=== PATIENT | female | born 1965 | race Caucasian/White ===

== ENCOUNTER 2025-08-04 13:28 | Outpatient (CLI) | payer BC, SELFPAY ==
--- OUTSIDE RECORDS SUMMARY | 2017-09-29 16:11 | XMS_ITS | Continuity of Care Document ---
Author Organization [facility] Address [address] [facility] [place] [address] Phone Care Team Providers Care Draw Bench Operator Name Role Phone Abhijit Donato MD Unavailable Unavailable Allergies, Adverse Reactions, Alerts Substance Reaction Status Criticality No Known Allergies Active No Inform ation Medications Medication Instructions Dosage Effective Dates (start - stop) Status Comments Vitamin D3 5,000 unit tablet take 1 tablet by Oral route every day 1 tablet - Active Lipitor 20 mg tablet take 1 tablet by oral route every evening - Active aspirin 81 mg tablet,delayed release take 1 tablet by oral route every evening 81 MG - Active Aldactone 100 mg tablet take 1 tablet by oral route every evening 100 MG - Active VITAMIN B-12 (unknown strength) [...] Diagnoses Date Provider Providers Copied on Encounter [facility], [address] [place] [address], [place], [place], [id number], tel:[phone] AMRIT DONATO OFFICE MHP No Information 7 Misa Buitrago [address], [address], [place], [place], [id number], [place]. tel:[phone] EST PT OFFICE VISIT LOW TO [facility], [address] [place] [address], [place], [place], [id number], tel:[phone] AMRIT DONATO OFFICE MHP 6 MTH f/U (chief complaint)gene ral (chief complaint) Cancer of colonPure hypercholeste rolemia, unspecifiedPa lpitationsHyp okalemia 6 Misa Buitrago [address], [address], [place], [place], [id number], [place]. tel:[phone] Referring Provider: Abhijit Mccallum [address], [place], [address] . tel:[phone] [facility], [address] [place] [address], [place], [place], [id number], tel:[phone] AMRIT DONATO OFFICE MHP Cardiomyopath y, unspecifiedPa lpitations 6 Misa Lacey. [address], [address], [place], [place], [id number], [place]. tel:[phone] Referring Provider: Abhijit Mccallum, [address], [place], [address] . tel:[phone] EST PT OFFICE VISIT MOD TO HIGH [facility], [address] [place] [address], [place], [place], [id number], tel:[phone] AMRIT DONATO OFFICE MHP hyperlipidemia (chief complaint)Free form HPI (chief complaint)gene ral (chief complaint) Pure hypercholeste rolemiaCancer of colonPalpitat ions 5 Misa Lacey. [address], [address], [place], [place], [id number], [place]. tel:[phone] Referring Provider: Abhijit Mccallum, [address], [place], [address] . tel:[phone] [facility], [address] [place] [address], [id number], tel:[phone] [facility] No Information 4 Misa Lacey. [address], [address], [place], [place], [id number], [place]. tel:[phone] Referring Provider: Abhijit Mccallum, [address], [place], [address] . tel:[phone] [facility], [address] [place] [address], [place], [place], [id number], tel:[phone] AMRIT Donato [place] [facility] Hypercholeste rolemiaFatigu e / MalaiseHypoka lemia 3 Katelyn Haley. [address], [place], [place], [id number], [place]. tel:[phone] EST PT OFFICE VISIT LOW TO MOD [facility], [address] [place] [address], [place], [place], [id number], [place] tel:[phone] AMRIT Misa [employer] [place] [facility] Hypercholeste rolemiaFatigu e / Malaise 3 Misa Lacey. [address], [place], [place], [id number], [place]. tel:[phone] Referring Provider: Abhijit Mccallum, [address], [place], [address] . tel:[phone] EST PT OFFICE VISIT [facility], [address], [place], [place], [id number], tel:[phone] AMRIT Misa [place] [facility] No Information 2 Misa Abhijit. [address], [address], [place], [place], [id number], [place]. tel:[phone] Referring Provider: Ajay Ron [address], [place], [address]. tel:[phone] EST PT OFFICE VISIT LOW TO [facility], [address], [place], [place], [id number], [place] tel:[phone] AMRIT ChildersMisa [place] [facility] No Information 2 Misa Lacey. [address], [place], [place], [id number], [place]. tel:[phone] Referring Provider: Ajay Ron [address], [place], [address]. tel:[phone] Family History Family Member Type Diagnosis Age At Onset Family Hx of Problem (finding) Diabetes Mellitus Payers Payer name Insurance type Covered alliance party ID Authorcamiloa tiana(s) [facility] PPO BL [id number] Social History Type Description Quantity Date Captured Comments Alcohol Use Details Caffeine Use Details Coffee Tobacco Use Status No Information Smoking Status Never smoker Sex Female Chief Complaint And Reason For Visit No Information Reason For Referral Reason For Referral No Information Plan Of Treatment Date Type Action Status Future Order: Radiology Order 2- D w/ CFD Echocardiogram at the first available time. ([id number]), Ordered on: Ordered History Of Present Illness [...]
--- OUTSIDE RECORDS SUMMARY | 2025-06-08 09:25 | XMS_ITS | Continuity of Care Document ---
Author Organization [facility] Address [address] [facility] [address] [place] [address] Phone Care Team Providers Care Manager Convention Name Role Phone Man Trevino MD, MD Unavailable Unavail able Allergies, Adverse Reactions, Alerts Substance Reaction Status Criticality No Known Allergies Active No Inform ation Medications Medication Instructions Dosage Effective Dates (start - stop) Status Comments atorvastatin 20 mg tablet TAKE 1 TABLET BY MOUTH EVERY DAY - Active escitalopram 10 mg tablet TAKE 1 TABLET BY MOUTH EVERY DAY - Active Zepbound 12.5 mg/0.5 mL subcutaneous pen injector INJECT 1 PEN INJECTOR INTO THE SKIN ONCE A WEEK - Active celecoxib 200 mg capsule TAKE 1 CAPSULE BY MOUTH EVERY DAY WITH FOOD - Active clindamycin HCl 300 mg capsule TAKE 1 CAPSULE BY MOUTH EVERY 8 HOURS - Active clotrimazole-betametha sone 1 %-0.05 % topical cream APPLY TOPICALLY TO THE AFFECTED AND SURROUNDING AREAS OF SKIN 2 TIMES PER DAY, IN THE MORNING AND EVENING, FOR 2 WEEKS - Active fluconazole 150 mg tablet TAKE 1 TABLET BY MOUTH EVERY 72 HOURS - Active Zepbound 10 mg/0.5 mL subcutaneous pen injector Inject 1 pen injector subcutaneously once a week - Active metronidazole 500 mg tablet TAKE 1 TABLET BY MOUTH 2 TIMES A DAY FOR 7 DAYS - Active ibuprofen 800 mg tablet TAKE 1 TABLET BY MOUTH EVERY 8 HOURS NEEDED for cramping - Active oxycodone 5 mg tablet TAKE 1 TABLET BY M OUTH EVERY 4 HOURS NEEDED FOR PAIN not relieved by non-opioid - Active Zepbound 7.5 mg/0.5 mL subcutaneous pen injector INJECT 7.5 MG SUBCUTANEOUSLY ONCE A WEEK DIRECTED - Active Zepbound 5 mg/0.5 mL subcutaneous pen injector inject 5 mg subcutaneously once a week as directed - Active Zepbound 2.5 mg/0.5 mL subcutaneous pen injector INJECT 1 PEN SUBCUTANEOUSLY 1 TIME A WEEK - Active alprazolam 0.25 mg tablet TAKE 1 TABLET BY MOUTH EVERY DAY NEEDED - Active valacyclovir 500 mg tablet TAKE 1 TABLET BY MOUTH ONCE DAILY FOR 90 DAYS - Active Procedures Procedure Date BMI Documented Above Normal Limit F/U Pl an Doc X-ray exam finger(s), minimum 2 views Kenalog 10mg/mL Asp/inject Minor joint or bursa w/o US g uidance Office/outpatient visit,[facility] 2024 Advance Directives Directive Yes / No Effective Date File Name No Information Encounters Encounter Description Practice Location Reason(s) For Visit Diagnoses Date Provider Providers Copied on Encounter [facility], [address] [place] [address], [id number], [place] tel:[phone] [facility] No Information Belinda Conway. [address], [id number], [place]. tel:[phone] Office/outpa tient visit,[facility], [address], [id number], [place] tel:[phone] [facility] Right hand (chief complaint) Pain in right finger(s)Primary osteoarthritis, right handCarpal tunnel syndrome, right upper limbUnilateral primary osteoarthritis of first carpometacarpal joint, right hand 5 Belinda Conway. [address], [id number], [place]. tel:[phone] [facility], [address], [place], [place], [id number], [place] tel:[phone] [facility] Pain in right hand José Anand Narda. [address], [address], [place], [address], [place]. tel:[phone] Family History Family Member Type Diagnosis Age At Onset Mother Problem (finding) Osteoarthritis Brother Problem (finding) Cancer, unknown Payers Payer name Insurance type Covered republican ID Authoriza tiana(s) Farhan Crain [facility] [id number] Social History Type Description Quantity Date Captured Comments Alcohol Use Details Unknown Caffeine Use Details Unknown Tobacco Use Status No Information Smoking Status No Information Sex Female Gender Identity Female Chief Complaint And Reason For Visit No Information Reason For Referral Reason For Referral No Information Plan Of Treatment Date Type Action Status Referral Ordered: X-ray exam finger(s), minimum 2 views RT ordered Referral Ordered: X-ray exam hand, 3+ views RT ordered Appointment Bruna Gasca BOOKED History Of Present Illness Encounter Date Complaint History Of Prese nt Illness Right hand Bruna present s to the office today on May 18, 2025. She is here because of right hand pain, numbness, and tingling, and also because of right thumb pain. Bruna reports that her symptoms have been present for about 2 years. She has tried wearing a splint at night for her right carpal tunnel syndrome, but the splint has not seemed to help, and Bruna has not tolerated the splint well. She reports that the right carpal tunnel symptoms wake her up at night. They also bother her when she is driving. Bruna tells me that she had a pinched nerve in her neck in July 2024, and she responded to Celebrex and physical therapy. However, her right hand symptoms persist. She also has pain in her right thumb. Her right thumb pain seems localized more to the interphalangeal joint than to the carpometacarpal joint. She is here today for further evaluation and treatment of her right hand and right thumb. Functional Status Date Functional Assessmen t No Information Instructions Date Instruction Additional Infor mation No Information Assessments Type Assessment Date No Information Patient Care Teams Name Effective Dates (start - stop) Status Members No Information
--- NOTE | ~2025-08-04 | CT_ITS ---
EXAMINATION: CT brain wo carla, 08/04/2025 13:41 CDT HISTORY: migraine COMPARISON: No comparisons available. Technique: Axial images obtained of the brain without contrast. One or more of the following dose reduction techniques were used: automated exposure control, adjustment of the mA and/or kV according to patient size, use of iterative reconstruction technique. Findings: No acute infarct or parenchymal hemorrhage. No abnormal mass or mass effect. No midline shift. No extra-axial fluid collections. No hydrocephalus. Mastoid air cells unremarkable. Sinuses and orbits unremarkable. No acute fracture. No significant facial or scalp soft tissue swelling evident. No radiopaque foreign body is seen. Impression: 1.No acute intracranial abnormality. Reviewed, dictated and finalized at location P. Impression: 1.No acute intracranial abnormality.
== END 2025-08-04 13:29 | disposition home or self-care (01) ==
LOC: ANHIMG 13:34
PROVIDERS: PCP Family Medicine; Visit Provider Nurse Practitioner Family
DX: G43.909 Migraine, unspecified, not intractable, without status migrainosus (principal)
CPT/HCPCS: 70450

== ENCOUNTER 2025-08-28 09:47 | Outpatient (CLI) | payer BC, SELFPAY ==
--- OUTSIDE RECORDS SUMMARY | 2017-09-29 16:11 | XMS_ITS | Continuity of Care Document ---
Author Organization [facility] Address [address] [facility] [place] [address] Phone Care Team Providers Care Black Top Paver Operator Name Role Phone Abhijit Donato MD Unavailable Unavailable Allergies, Adverse Reactions, Alerts Substance Reaction Status Criticality No Known Allergies Active No Inform ation Medications Medication Instructions Dosage Effective Dates (start - stop) Status Comments Lipitor 20 mg tablet take 1 tablet by oral route every evening - Active Vitamin D3 5,000 unit tablet take 1 tablet by Oral route every day 1 tablet - Active Aldactone 100 mg tablet take 1 tablet by oral route every evening 100 MG - Active aspirin 81 mg tablet,delayed release take 1 tablet by oral route every evening 81 MG - Active VITAMIN B-12 (unknown strength) take 1 Tablet by Oral route every day Not Available - Active OMEPRAZOLE (unknown strength) take 1 capsule by oral route every evening before a meal Not Available - Active Procedures Procedure Date EST PT OFFICE VISIT LOW TO MOD 16 EKG, COMPLETE ECHO COMPLETE EST PT OFFICE VISIT MOD TO HIGH 015 EKG, COMPLETE ECHO TRANSTHORACIC STRESS TEST CARDIO INTERP AND REPORT ONL Y EST PT OFFICE VISIT LOW TO MOD 13 EKG, COMPLETE EST PT OFFICE VISIT MIN EST PT OFFICE VISIT LOW TO MOD 12 EKG, COMPLETE Advance Directives Directive Yes / No Effective Date File Name Resuscitation Not Answered N/A N/A Life Support Not Answered N/A N/A Intubation Not Answered N/A N/A Antibiotics Not Answered N/A N/A IV Fluid Support Not Answered N/A N/A Tube Feed Not Answered N/A N/A Other Directive N/A N/A WARNING:The information contained in this section is historical and is provided for information only and does not constitute a legal document or any assurance that the information is still accurate. Please verify the information with the lynn of the legal document before using it for clinical purposes. Encounters Encounter Description Practice Location Reason(s) For Visit Diagnoses Date Provider Providers Copied on Encounter [facility], [address] [place] [address], [place], [place], [id number], tel:[phone] AM[facility]IT DONATO OFFICE [facility] No Information 7 Misa Buitrago [address], [address], [place], [place], [id number], [place]. tel:[phone] EST PT OFFICE VISIT LOW TO [facility], [address] [place] [address], [place], [place], [id number], tel:[phone] AMRIT DONATO OFFICE M[facility] 6 MTH f/U (chief complaint)gene ral (chief complaint) Cancer of colonPure hypercholeste rolemia, unspecifiedPa lpitationsHyp okalemia 6 Misa Buitrago [address], [address], [place], [place], [id number], [place]. tel:[phone] Referring Provider: Abhijit Mccallum [address], [place], [address] . tel:[phone] [facility], [address] [place] [address], [place], [place], [id number], tel:[phone] AMRIT DONATO OFFICE M[facility] Cardiomyopath y, unspecifiedPa lpitations 6 Misa Lacey. [address], [address], [place], [place], [id number], [place]. tel:[phone] Referring Provider: Abhijit Mccallum, [address], [place], [address] . tel:[phone] EST PT OFFICE VISIT MOD TO HIGH [facility], [address] [place] [address], [place], [place], [id number], tel:[phone] AMRIT DONATO OFFICE MHP hyperlipidemia (chief complaint)Free form HPI (chief complaint)gene ral (chief complaint) Pure hypercholeste rolemiaCancer of colonPalpitat ions 5 Misa Lacey. [address], [address], [place], [place], [id number], [place]. tel:[phone] Referring Provider: Abhijit Mccallum, [address], [place], [address] . tel:[phone] [facility], [address] [place] [address], [id number], tel:[phone] [facility] No Information 4 Misa Lacey. [address], [address], [place], [place], [id number], [place]. tel:[phone] Referring Provider: Abhijit Mccallum, [address], [place], [address] . tel:[phone] [facility], [address] [place] [address], [place], [place], [id number], tel:[phone] AMRIT Donato [place] [facility] Hypercholeste rolemiaFatigu e / MalaiseHypoka lemia 3 Katelyn Haley. [address], [place], [place], [id number], [place]. tel:[phone] EST PT OFFICE VISIT LOW TO MOD [facility], [address] [place] [address], [place], [place], [id number], [place] tel:[phone] AMRIT Misa [employer] [place] [facility] Hypercholeste rolemiaFatigu e / Malaise 3 Misa Lacey. [address], [place], [place], [id number], [place]. tel:[phone] Referring Provider: Abhijit Mccallum, [address], [place], [address] . tel:[phone] EST PT OFFICE VISIT [facility], [address], [place], [place], [id number], tel:[phone] AMRIT Misa [place] [facility] No Information 2 Misa Abhijit. [address], [place], [place], [id number], [place]. tel:[phone] Referring Provider: Ajay Ron [address], [place], [address]. tel:[phone] EST PT OFFICE VISIT LOW TO [facility], [address], [place], [place], [id number], [place] tel:[phone] AMRIT ChildersMisa [place] [facility] No Information 2 Misa Lacey. [address], [place], [place], [id number], [place]. tel:[phone] Referring Provider: Ajay Ron [address], [place], [address]. tel:[phone] Family History Family Member Type Diagnosis Age At Onset Family Hx of Problem (finding) Diabetes Mellitus Payers Payer name Insurance type Covered libertarian ID Authorcamiloa tiana(s) [facility] PPO BL [id number] Social History Type Description Quantity Date Captured Comments Alcohol Use Details Caffeine Use Details Coffee Tobacco Use Status No Information Smoking Status Never smoker Sex Female Chief Complaint And Reason For Visit No Information Reason For Referral Reason For Referral No Information Plan Of Treatment Date Type Action Status Future Order: Radiology Order 2- D w/ CFD Echocardiogram at the first available time. ([id number]), Ordered on: Ordered History Of Present Illness Encounter Date Complaint History Of Prese nt Illness 6 MTH f/U general She has had no c hest discomfort suggestive of ischemia. The patient denies orthopnea, PND, BETANCOURT, or edema. Ms. Gasca has not had palpitations, syncope or near syncope. She denies claudication. There is no discoloration or ulceration of the lower extremities. She has had no TIA or stroke-like symptoms. The patient has no symptoms attributable to valvular heart disease. hyperlipidemia Freeform HPI 50 yo female wit h a hx of colon cancer, hyperlipidemia is self -referred ; she was last seen in the office in 2012; she admits to having recurrent palpitations which usually occur prior to starting her period; her heart feels irregular; she denies cp, sob. general She has had no c hest discomfort suggestive of ischemia. The patient denies orthopnea, PND, BETANCOURT, or edema. Ms. Gasca has not had palpitations, syncope or near syncope. She denies claudication. There is no discoloration or ulceration of the lower extremities. She has had no TIA or stroke-like symptoms. The patient has no symptoms attributable to valvular heart disease. Functional Status Date Functional Assessmen t No Information Instructions Date Instruction Additional Infor mation No Information Assessments Type Assessment Date No Information Patient Care Teams Name Effective Dates (start - stop) Status Members No Information
--- NOTE | ~2025-08-28 | MR_ITS ---
EXAMINATION: MR brain/brain stem wo con DATE: 08/28/2025 10:58 INDICATION: Migraine, unspecified, not intractable. TECHNIQUE: Magnetic resonance imaging (MRI) of the brain and brainstem was performed without intravenous contrast. COMPARISON: Head CT 08/04/25 FINDINGS: There are scattered areas of nonspecific increased T2-weighted signal intensity in the cerebral white matter, which is within normal limits for the patient's age. There is no intracranial hemorrhage, acute infarction, or abnormal intracranial mass lesion. The ventricles are normal in size. The mastoid air cells are normal. There is mild mucosal thickening in the paranasal sinuses. The orbits are normal. IMPRESSION: 1. Normal aging brain. Reviewed, dictated and finalized at location E. IMPRESSION: 1. Normal aging brain.
--- OUTSIDE RECORDS SUMMARY | 2025-08-28 09:52 | XMS_ITS | Clinical Summary ---
Author Organization [facility] [address] Address [address] [place] [address] Care Team Providers Care Associate Data Scientist Name Role Phone No, Physician Primary Care Provider [phone] Allergies No known active allergies Medications atorvastatin (LIPITOR) 20 mg tablet Take 1 tablet (20 mg total) by mouth daily Active escitalopram (LEXAPRO) 10 mg tablet Take 1 tablet (10 mg total) by mouth daily Active tirzepatide (ZEPBOUND SUBQ) Inject under the skin Active cholecalciferol 400 unit capsule Take 1 tablet/caps ule (400 Units total) by mouth daily 06/30/2025 Active calcium carbonate (TUMS) 500 mg (200 mg elemental calcium) chewable tablet Take by mouth Active Active Problems Problem Noted Date Diagnosed Date LINDA (obstructive sleep apnea) 08/26/2025 Hyperlipidemia LDL goal <100 08/26/2025 History of colon cancer 08/26/2025 Palpitations 08/26/2025 Lipid screening 08/26/2025 Encounters Date Type Department Care Team Description 08/26/2025 8:30 AM CDT Office Visit [facility] Cardiology at [address] [place] [address] Brien Muniz MD Lipid screening (Primary Dx); Palpitations; History of colon cancer; Hyperlipidemia LDL goal <100; LINDA (obstructive sleep apnea) from Last 3 Months Surgical History Surgery Date Site/Laterality Comments HYSTERECTOMY Medical History Medical History Date Comments Hyperlipidemia Acid indigestion Sleep apnea Family History Medical History Relation Name Comments No Known Problems Brother 1 Leukemia Brother 2 Atrial fibrillation Mother Relation Name Status Comments Brother 1 Alive Brother 2 Father Mother Alive Social History Tobacco Use Types Packs/Day Years Used Date Smoking Tobacco: Never Smokeless Tobacco: Never Tobacco Cessation:Counseling Given: Not Answered Comments Unknown Sex and Gender Information Value Date Recorded Sex Assigned at Not on file Legal Sex Female 9:39 AM CDT Gender Identity Not on file Sexual Orientation Not on file Obstetrics History Last Filed Vital Signs Vital Sign Reading Time Taken Comments Blood Pressure 118/62 08/26/2025 8:26 AM CDT Pulse 73 08/26/2025 8:26 AM CDT Temperature - - Respiratory Rate - - Oxygen Saturation 97% 08/26/2025 8:26 AM CDT Inhaled Oxygen Concentration - - Weight 74.8 kg (165 lb) 08/26/2025 8:26 AM CDT Height 170.2 cm (5' 7) 08/26/2025 8:26 AM CDT Body Mass Index 25.84 08/26/2025 8:26 AM CDT Plan of Treatment Health Maintenance Due Date Last Done Comments Colon Cancer Screening-Colonoscopy 1966 Depression Screening 1966 Hepatitis C Screening 1966 DTaP/Tdap/Td Vaccine (1 - Tdap) 1977 Hepatitis B Screening 01/26/1984 Regular Well Visit/Exam 18-64 01/26/1984 Zoster Vaccine (1 of 2) 01/26/2016 Breast Cancer Screening-Mammogram 05/26/2026 05/26/2025, 05/26/2025 Influenza Vaccine Completed 08/22/2025 Pneumococcal vaccine <65 Aged Out No longer eligible based on patient's age to complete this topic Procedures Procedure Name Priority Date/Time Associated Diagnosis Comments ECG 12-LEAD Routine 08/26/2025 8:22 AM CDT Palpitations POCT LIPID PANEL Routine 08/26/2025 8:18 AM CDT Lipid screening from Last 3 Months Results * ECG 12 lead (08/26/2025 8:22 AM CDT) us Brien Muniz MD ECG ORDERABLES Edited Re sult - Final * POCT lipid panel (08/26/2025 8:18 AM CDT) Cholesterol, POC 142 <200 MG/DL HDL, POC 57 >=40 mg/dL Triglycerides, POC 77 <=149 mg/dL LDL Cholesterol POC 71 <=129 mg/dL Chol/HDL Ratio, POC 2.5 NONE Non-HDL Cholesterol, POC 86 NONE mg/dL Cholesterol Total, POC 142 30 - 199 mg/dL Capillary blood 08/26/2025 8 :18 AM CDT us Brien Muniz MD POINT OF CARE TEST ORDERA BLES Final Result from Last 3 Months Insurance [place] [employer] [place] PPO [place] Care Teams Associate Data Scientist Relationship Specialty Start Date End Date No, Physician PCP - General 04/07/25
--- OUTSIDE RECORDS SUMMARY | 2025-08-28 09:52 | XMS_ITS | Clinical Summary ---
Author Organization [facility] Address [facility] [place] [address] Care Team Providers Care Loan Interviewer Mortgage Name Role Phone Sonia Linton MD Primary Care Provider + Allergies No known active allergies Medications Cholecalciferol (VITAMIN D-3 OR) Act carlitos biotin 300 MCG Tab Take 1 tablet (300 mcg total) by mouth daily. Active Calcium Carbonate (CALCIUM 500 OR) Act carlitos atorvastatin (LIPITOR) 20 MG tabletIndications:M ixed hyperlipidemia Take 1 tablet (20 mg total) by mouth daily. 90 tablet 3 5 05/19/20 26 Active escitalopram (LEXAPRO) 10 MG tabletIndications:G AD (generalized anxiety disorder) Take 1 tablet (10 mg total) by mouth daily. 90 tablet 3 5 05/19/20 26 Active omeprazole (PRILOSEC) 20 MG capsuleIndications: Gastroesophageal reflux disease without esophagitis Take 1 capsule (20 mg total) by mouth daily. 90 capsule 3 5 05/19/20 26 Active Active Problems Problem Noted Date Diagnosed Date Mixed hyperlipidemia 05/19/2025 Overview (05/19/2025): Has been taking atorvastatin for years. Familial. Assessment & Plan (05/19/2025 9:19 AM CDT): Will check CMP and lipid panel to ensure she is controlled. Continue atorvastatin. MAICOL (generalized anxiety disorder) 05/19/2025 Overview (05/19/2025): Has been taking lexapro for a couple years. Tried off but symptoms returned. Assessment & Plan (05/19/2025 9:20 AM CDT): Controlled. Continue Lexapro. GERD (gastroesophageal reflux disease) Overview (05/19/2025): Takes omeprazole. Has not tried eliminating but is interested in coming off medication. Assessment & Plan (05/19/2025 9:20 AM CDT): Controlled. Trial medication every other day or discontinue in favor of Pepcid to see if this manages symptoms. History of colon cancer 05/19/2025 Overview (05/19/2025): S/p right hemicolectomy. Colonoscopies every 3 years. Polyps each time. Needs to get established. Assessment & Plan (05/19/2025 9:20 AM CDT): Ordered referral to gastroenterology for continuation of care. Requested record of her last colonoscopy. History of HPV infection 05/19/2025 Overview (05/19/2025): S/p hysterectomy including cervix but needs ongoing paps. Assessment & Plan (05/19/2025 9:20 AM CDT): Will acquire records to find out how advanced her cervical abnormalities were and what kind of follow-up she requires. Pap smear today on the vaginal cuff. HSV-1 (herpes simplex virus 1) infection 025 Overview (05/19/2025): Affects her genitally. Only ever had one outbreak. Has valacyclovir Encounters Date Type Department Care Team Description 06/02/2025 Results Follow-Up [facility] [address] [place] [address] Talisha Robbins, WILTON MG SCREENING W STEFANO TYLER DIGI from Last 3 Months Family History Medical History Relation Comments Leukemia Brother 1 No Known Problems Brother 2 No Known Problems Daughter Hyperlipidemia Mother Hypertension Mother No Known Problems Son Relation Status Comments Brother 1 Brother 2 Alive Daughter Alive Father Mother Alive Son Alive Social History Tobacco Use Types Packs/Day Years Used Date Smoking Tobacco: Never Passive Smoke Exposure: Never Smokeless Tobacco: Never Tobacco Cessation:Counseling Given: No Alcohol Use Standard Drinks/Week Comments Yes 0 (1 standard drink = 0.6 oz pur e alcohol) rare PHQ-2 Answer Date Recorded Patient Health Questionnaire-2 Score 0 05/19/2025 Comments No Sex and Gender Information Value Date Recorded Sex Assigned at Female 01/18/2025 11:08 AM CDT Legal Sex Female 11:02 AM CDT Gender Identity Female 05/19/2025 8:35 AM CDT Sexual Orientation Not on file Last Filed Vital Signs Vital Sign Reading Time Taken Comments Blood Pressure 98/64 05/19/2025 8:39 AM CDT Pulse 86 05/19/2025 8:39 AM CDT Temperature 36.9 C (98.4 F) 05/19/2025 8:39 AM CDT Respiratory Rate 18 05/19/2025 8:39 AM CDT Oxygen Saturation 99% 05/19/2025 8:39 AM CDT Inhaled Oxygen Concentration - - Weight 73.5 kg (162 lb) 05/19/2025 8:39 AM CDT Height 170.2 cm (5' 7) 05/19/2025 8:39 AM CDT Body Mass Index 25.37 05/19/2025 8:39 AM CDT Plan of Treatment Upcoming Encounters Date Type Department Care Team (Late st Contact Info) Description 05/22/2026 8:50 AM CDT Office Visit [facility] Family Medicine - [place] [address] [place] [address] [phone] Sonia Linton MD [address] [place] [phone] Health Maintenance Due Date Last Done Comments DTaP, Tdap and Td Vaccines (1 - Tdap) 1984 Pneumococcal Vaccine: 50+ Years (1 of 1 - PCV) 01/26/2016 Zoster Vaccines (1 of 2) 01/26/2016 COVID-19 Vaccine (1 - season) 2025 Influenza Adult (#1) 2025 Annual Physical 05/19/2026 05/19/2025 Mammogram Screening 05/26/2027 05/26/2025, 08/03/2024, 09/09/2023, Additional history exists Colorectal Cancer Screening Colonoscopy (10 Years) 04/05/2030 04/05/2020 Hepatitis C Completed 06/10/2024, 0811/2023, 06/26/2023, Additional history exists PHQ-2 (Physician [place]) Completed 05/19/2025 Hepatitis A Vaccines Aged Out No long er eligible based on patient's age to complete this topic Meningococcal B Vaccine Aged Out No l onger eligible based on patient's age to complete this topic Meningococcal Vaccine Aged Out No satish kamilah eligible based on patient's age to complete this topic RSV Immunizations Under 20 Months Aged Out No longer eligible based on patient's age to complete this topic Procedures Procedure Name Priority Date/Time Associated Diagnosis Comments MG SCREENING W STEFANO TYLER DIGI Routine 05/26/2025 1:24 PM CDT Screening for breast cancer HEP C SCANNED ORDERS Routine 06/10/2024 COLONOSCOPY GENERIC (SCAN ORDER) 04/05/2020 from Last 3 Months or Most Recently Relevant to Health Maintenance Results * MG SCREENING W STEFANO TYLER DIGI (05/26/2025 1:24 PM CDT) Anatomical Region Laterality Modality Breast Bilateral Mammography 06/02/2025 2:34 PM CDT Impressions 06/02/2025 2:36 PM CDT IMPRESSION: No significant interval change. No mammographic evidence of malignancy. RECOMMENDATION: Routine ScreeningBilateral OVERALL IMAGING ASSESSMENT: ACR BI-RADS 2 - BENIGN FINDING(S). Ordered By: TALISHA ROBBINS Interpreted By: Isrrael Aguirre, 06/02/2025 2:34 PM Narrative 06/02/2025 2:36 PM CDT [address] [address] EXAMINATION: MG SCREENING W STEFANO TYLER DIGI INDICATIONS: Screening TECHNIQUE: Digital full field CC and MLO screening mammography bilaterally to include 3-D Tomosynthesis technique. This study was read with the assistance of a computer-aided detection system. HISTORY: No reported breast complaint. Prior reduction mammoplasty bilaterally. Prior right breast biopsy. No documented personal or first degree family history of breast cancer. COMPARISON: 08/03/2024 and 09/09/2023. TISSUE DENSITY: There are scattered areas of fibroglandular density. FINDINGS: Stable post mammoplasty architectural distortion bilaterally. Multiple scattered typically benign round calcifications bilaterally. No suspicious microcalcification or mass. No developing asymmetry or architectural distortion. No axillary adenopathy. [facility]INET ASSEM[facility] Final Res ult * HEP C SCANNED ORDERS (06/10/2024) [facility] Scanned SCANNING Final Resu lt [facility] * COLONOSCOPY GENERIC (SCAN ORDER) (04/05/2020) 04/05/2020 [employer] [facility] Scanned SCANNING Final Resu lt from Last 3 Months or Most Recently Relevant to Health Maintenance Insurance [facility] Care Teams Loan Interviewer Mortgage Relationship Specialty Start Date End Date Sonia Linton MD [address] [facility] [address] [place] [id number] PCP - General FAMILY PRACTICE 05/19/25
--- OUTSIDE RECORDS SUMMARY | 2025-08-28 09:52 | XMS_ITS | Patient Health Record ---
Author Organization [facility] Address [address] [facility] [address] [place] [address] Care Team Providers Care Breakfast Manager Name Role Phone leroyMarlonemeterio Wilbert Unavailable [phone] Asaf HAWTHORNE, Ajay Unavailable Unavailable Reason For Referral No Information Plan Of Treatment No Information Insurance Providers Payer Name Payer Address Payer Phone Subscriber Number Group Number Insured Name Patient Relationship to Insured Coverage Start Date Coverage End Date BC [address] [place] [address] [phone] [id number] Obdulio Thrasher Other
== END 2025-08-28 09:48 | disposition home or self-care (01) ==
PROVIDERS: PCP Family Medicine; Visit Provider Nurse Practitioner Family
DX: G43.909 Migraine, unspecified, not intractable, without status migrainosus (principal)
CPT/HCPCS: 70551

== ENCOUNTER 2025-08-30 09:54 | Outpatient (CLI) | payer BC, SELFPAY ==
[2025-08-30 11:12] LABS: Hematocrit 45.3 % (37.0-47.0); Hemoglobin 15.3 g/dL (12.0-15.0); Immature Granulocyte Percent A 0.2 % (0-0.5); Lymphocytes Absolute Auto 1.76 K/mm3 (0.9-3.2); Mean Corpuscular HGB Conc 33.8 g/dl (32-36); Mean Corpuscular Hemoglobin 31.4 pg (26-34); Mean Corpuscular Volume 92.8 fl (80-100); Nucleated Red Blood Cells Absolute Auto 0.000 K/mm3 (0.0-0.012); Nucleated Red Blood Cells Perc 0.0 % (0.0-0.2); Platelet Count Result 270 k/mm3 (150-375); Red Blood Count 4.88 M/mm3 (4.2-5.4); White Blood Count 5.2 K/mm3 (4.5-10.0)
[2025-08-30 11:34] LABS: Alanine Aminotransferase 41 U/L (6-35); Albumin Level 4.5 g/dL (3.5-5.1); Alkaline Phosphatase 73 U/L (38-126); Aspartate Amino Transferase 49 U/L (14-36); Bilirubin,Total 0.8 mg/dL (0.2-1.3); Total Protein 7.7 g/dL (6.3-8.2)
--- OUTSIDE RECORDS SUMMARY | 2025-08-30 11:42 | XMS_ITS | Patient Health Record ---
Author Organization [facility] Address [address] [facility] [address] [place] [address] Care Team Providers Care Furniture Technician Name Role Phone leroyMarlonemeterio Wilbert Unavailable [phone] Asaf HAWTHORNE, Ajay Unavailable Unavailable Reason For Referral No Information Plan Of Treatment No Information Insurance Providers Payer Name Payer Address Payer Phone Subscriber Number Group Number Insured Name Patient Relationship to Insured Coverage Start Date Coverage End Date BC [address] [place] [phone] [id number] Obdulio Thrasher Other
--- OUTSIDE RECORDS SUMMARY | 2025-08-30 11:42 | XMS_ITS | Clinical Summary ---
Author Organization [facility] Address [facility] [place] [address] Care Team Providers Care Sales Secretary Name Role Phone Sonia Linton MD Primary [...] Department Care Team Description 06/02/2025 Results Follow-Up [facility] [address] [place] [address] [place] [address] Talisha Robbins, WILTON MG SCREENING W STEFANO [...] Description 05/22/2026 8:50 AM CDT Office Visit [facility] Family Medicine - [place] [address] [place] [phone] Sonia Linton MD [address] [place] [phone] Health Maintenance Due Date Last Done [...] 0811/2023, 06/26/2023, Additional history exists PHQ-2 (Physician [place]) Completed 05/19/2025 Hepatitis A Vaccines Aged Out [...] 2:34 PM Narrative 06/02/2025 2:[address] [address] EXAMINATION: MG SCREENING W STEFANO TYLER DIGI [...] No axillary adenopathy. [facility] BE[facility] M[facility] Final Res ult * HEP C SCANNED ORDERS (06/10/2024) [facility] Scanned SCANNING Final Resu lt [facility] * COLONOSCOPY GENERIC (SCAN ORDER) (04/05/2020) 04/05/2020 [facility] Scanned SCANNING Final Resu lt from Last 3 Months or Most Recently Relevant to Health Maintenance Insurance [facility] Care Teams Sales Secretary Relationship Specialty Start Date End Date Sonia Linton MD [address] [facility] [address] [place] [id number] PCP - General FAMILY PRACTICE 05/19/25
--- OUTSIDE RECORDS SUMMARY | 2025-08-30 11:42 | XMS_ITS | Clinical Summary ---
Author Organization [facility] [address] Address [address] [place] [address] Care Team Providers Care Precipitation Equipment Tender Name Role Phone No, Physician Primary Care Provider [phone] Allergies No known active allergies Medications atorvastatin [...] Description 08/26/2025 8:30 AM CDT Office Visit [facility] Cardiology at [address] [place] [address] Brien Muniz MD Lipid screening [...] [place] [employer] [place] [place] Care Teams Precipitation Equipment Tender Relationship Specialty Start Date End Date No, Physician PCP - General 04/07/25
[2025-08-30 12:28] LABS: Vitamin B12 311.0 pg/mL (239-931)
== END 2025-08-30 09:55 | disposition home or self-care (01) ==
PROVIDERS: PCP Family Medicine; Visit Provider Family Medicine
DX: Z00.00 Encounter for general adult medical examination without abnormal findings (principal); R74.01 Elevation of levels of liver transaminase levels; E78.5 Hyperlipidemia, unspecified; Z90.49 Acquired absence of other specified parts of digestive tract; Z85.038 Personal history of other malignant neoplasm of large intestine
CPT/HCPCS: 36415; 80076; 82172; 82607; 85025